=== PATIENT | female | born 1995 | race Hispanic/Latino ===

== ENCOUNTER 2017-07-15 12:05 | Emergency (ER) | payer OTHER ==
[2017-07-15 14:17] LABS: BASO % 0.3 % (0.0-1.0); EOS % 0.1 % (0.0-3.0); HEMATOCRIT 43.2 % (36.0-47.0); HEMOGLOBIN 15.3 g/dl (12.0-16.0); IMMATURE GRANULOCYTE % 0.3 % (0-3.0); LYMPH % 19.6 % (24.0-44.0); MEAN CORPUSCULAR HEMOGLOBIN 31.2 pg (27.0-33.0); MEAN CORPUSCULAR HGB CONC 35.4 g/dl (32.0-36.5); MEAN CORPUSCULAR VOLUME 88.2 fl (80.0-96.0); MONO # 0.7 10^3/uL (0.0-0.8); MONO % 6.6 % (0.0-5.0); NEUTROPHILS # 7.6 10^3/uL (1.8-7.7); NEUTROPHILS % 73.1 % (36.0-66.0); PLATELET COUNT, AUTOMATED 244 10^3/uL (150-450); RED CELL DISTRIBUTION WIDTH 12.2 % (11.5-14.5); WHITE BLOOD COUNT 10.4 10^3/uL (4.0-10.0)
[2017-07-15 14:24] LABS: KETONE, URINE AUTO RFX NEGATIVE (NEGATIVE); NITRITE, URINE AUTO RFX NEGATIVE (NEGATIVE); RBC, URINE AUTO RFX 0 /HPF (0-3); SPECIFIC GRAVITY UR AUTO RFX 1.004 (1.002-1.035); SQUAM EPITHELIAL CELL UR AURFX 3 /HPF (0-6); WBC, URINE AUTO RFX 8 /HPF (0-3)
[2017-07-15 14:52] LABS: LEUKOCYTE ESTERASE UR AUTO RFX 2+ (NEGATIVE)
[2017-07-15 15:07] LABS: HCG, SERUM QUANTITATIVE 55140 MIU/ML
== END 2017-07-15 15:42 | disposition home or self-care (01) ==
LOC: M ED 12:05
DX: O23.11 Infections of bladder in pregnancy, first trimester (principal); O26.851 Spotting complicating pregnancy, first trimester; Z3A.01 Less than 8 weeks gestation of pregnancy
CPT/HCPCS: 76801

== ENCOUNTER → 2017-08-05 | Outpatient (CLI) | payer OTHER ==
[2017-08-05 13:33] LABS: BASO % 0.4 % (0.0-1.0); EOS % 0.1 % (0.0-3.0); HEMATOCRIT 42.5 % (36.0-47.0); HEMOGLOBIN 14.7 g/dl (12.0-16.0); IMMATURE GRANULOCYTE % 0.2 % (0-3.0); LYMPH # 1.5 10^3/uL (1.5-6.5); LYMPH % 17.1 % (24.0-44.0); MEAN CORPUSCULAR HGB CONC 34.6 g/dl (32.0-36.5); MEAN CORPUSCULAR VOLUME 89.7 fl (80.0-96.0); MONO # 0.5 10^3/uL (0.0-0.8); NEUTROPHILS # 6.5 10^3/uL (1.8-7.7); NEUTROPHILS % 76.2 % (36.0-66.0); PLATELET COUNT, AUTOMATED 244 10^3/uL (150-450); RED BLOOD COUNT 4.74 10^6/uL (4.00-5.40); RED CELL DISTRIBUTION WIDTH 12.7 % (11.5-14.5); WHITE BLOOD COUNT 8.5 10^3/uL (4.0-10.0)
[2017-08-05 14:25] LABS: RUBELLA IgG QUALITATIVE IMMUNE (IMMUNE)
[2017-08-05 14:26] LABS: HBsAg Prenatal NEGATIVE (NEGATIVE)
[2017-08-05 14:54] LABS: HEPATITIS C VIRUS ABY INDEX < 0.0 INDEX (<0.8)
[2017-08-05 14:55] LABS: HIV 1&2 SCREEN CENTAUR NEGATIVE (NEGATIVE)
[2017-08-05 15:38] LABS: CHLAMYDIA DNA AMPLIFICATION NEGATIVE (NEGATIVE); GC DNA AMPLIFICATION NEGATIVE (NEGATIVE)
== END ==
LOC: M SMT 09:54
DX: Z34.81 Encounter for supervision of other normal pregnancy, first trimester (principal); Z3A.09 9 weeks gestation of pregnancy

== ENCOUNTER → 2017-12-03 | Outpatient (CLI) | payer OTHER ==
[2017-12-03 13:17] LABS: BASO % 0.3 % (0.0-1.0); EOS % 0.3 % (0.0-3.0); HEMOGLOBIN 12.1 g/dl (12.0-15.5); IMMATURE GRANULOCYTE % 0.4 % (0-3.0); LYMPH # 1.3 10^3/uL (1.5-6.5); LYMPH % 18.1 % (24.0-44.0); MEAN CORPUSCULAR HEMOGLOBIN 30.6 pg (27.0-33.0); MEAN CORPUSCULAR HGB CONC 33.6 g/dl (32.0-36.5); MEAN CORPUSCULAR VOLUME 90.9 fl (80.0-96.0); MONO # 0.4 10^3/uL (0.0-0.8); MONO % 5.8 % (0.0-5.0); NEUTROPHILS # 5.5 10^3/uL (1.8-7.7); NEUTROPHILS % 75.1 % (36.0-66.0); PLATELET COUNT, AUTOMATED 208 10^3/uL (150-450); RED BLOOD COUNT 3.96 10^6/uL (4.00-5.40); WHITE BLOOD COUNT 7.4 10^3/uL (4.0-10.0)
[2017-12-03 14:07] LABS: GLUCOSE CHALLENGE TEST 1 HOUR 129 MG/DL (LESS THAN 140)
== END ==
LOC: M SMT 09:22
DX: Z34.82 Encounter for supervision of other normal pregnancy, second trimester (principal); Z36.89 Encounter for other specified antenatal screening
CPT/HCPCS: 82950

== ENCOUNTER → 2018-02-04 | Outpatient (REF) | payer OTHER | LOC: M LAB REF 17:17 | DX: Z34.83 Encounter for supervision of other normal pregnancy, third trimester (principal) ==

== ENCOUNTER 2018-02-20 02:11 | Inpatient (IN) | payer OTHER ==
[2018-02-20] MEDS ORDERED: LR 1,000 ML IV (02:51)
[2018-02-20] MEDS ORDERED: LACTATED RINGER'S 1000 ML IV (02:51)
[2018-02-20] MEDS ORDERED: OXYTOCIN 30 UNITS IN 0.9% NaCl 500ML IV BAG (J2590) As Ordered (03:13)
[2018-02-20] MEDS ORDERED: OXYTOCIN DRIP 30 UNITS in APPROPRIATE DILUENT 1 EA IV (03:36)
[2018-02-20 03:45] LABS: HEMATOCRIT 39.6 % (36.0-47.0); HEMOGLOBIN 12.9 g/dl (12.0-15.5); MEAN CORPUSCULAR HEMOGLOBIN 26.8 pg (27.0-33.0); MEAN CORPUSCULAR HGB CONC 32.6 g/dl (32.0-36.5); MEAN CORPUSCULAR VOLUME 82.3 fl (80.0-96.0); PLATELET COUNT, AUTOMATED 208 10^3/uL (150-450); RED BLOOD COUNT 4.81 10^6/uL (4.00-5.40); RED CELL DISTRIBUTION WIDTH 13.7 % (11.5-14.5); WHITE BLOOD COUNT 9.8 10^3/uL (4.0-10.0)
[2018-02-20] MEDS ORDERED: DOCUSATE SODIUM 100 MG CAP PO (03:45)
[2018-02-20] MEDS ORDERED: DIBUCAINE 1% OINTMENT 30GM TOP (03:45)
[2018-02-20] MEDS ORDERED: RHOGAM 300 MCG (1500 IU) INJ (J2790) IM (03:45)
[2018-02-20] MEDS ORDERED: MEASLES,MUMPS,RUBELLA VACCINE INJ (MMR-II) (90707) SC (03:45)
[2018-02-20] MEDS ORDERED: ACETAMINOPHEN 500 MG TAB PO (03:45)
[2018-02-20] MEDS ORDERED: METHYLERGONOVINE MALEATE 0.2 MG TAB PO (03:45)
[2018-02-20] MEDS: PRENATAL VITAMINS CHEWABLE TABLET PO (09:04)
[2018-02-20] MEDS: IBUPROFEN 800 MG TAB PO ×2 (09:35→18:06)
[2018-02-21] MEDS: PRENATAL VITAMINS CHEWABLE TABLET PO (08:07)
[2018-02-21] MEDS: INFLUENZA QUADRIVALENT PF VACCINE 0.5ML SYRINGE (90686) IM (11:23)
[2018-02-21] MEDS: ADACEL/BOOSTRIX VACCINE (DIPHTH/PERTUSS/ACELL/TETANUS)0.5ML SYR (90715) IM (11:24)
== END 2018-02-21 12:40 | disposition home or self-care (01) | DRG 775 ==
LOC: M LDO 02:11 → M LDI 02:50 → M OBS 05:12
PROVIDERS: Advanced Practice Midwife
PROC: 10E0XZZ Delivery of Products of Conception, External Approach (ICD-10-PCS; principal; 2018-02-20)
DX: O69.1XX0 Labor and delivery complicated by cord around neck, with compression, not applicable or unspecified (principal); Z3A.38 38 weeks gestation of pregnancy; Z37.0 Single live birth

== ENCOUNTER → 2018-06-17 | Outpatient (CLI) | payer OTHER ==
[~2018-06-17] MED LIST: ACET-683 PO; MOTR200T44 PO; NITR100C39 PO; PRENTAB9 PO
--- NOTE | 2018-06-18 02:36 | REP ---
Clinical: Incidental . Technique: Transabdominal and transit vaginal first trimester obstetrical ultrasound with color Doppler evaluation. Findings: Retroverted uterus measures 9.5 x 4.8 x 6.1 cm. A gestational sac with yolk sac identified. Mean sac diameter of 12 mm corresponds to 6 weeks 0 days gestational age. A small subchorionic hemorrhage is identified. IUD is visualized inferior to the gestational sac. Maternal ovaries are normal in appearance and vascularity without torsion. Right ovary measures 1.4 x 1.1 x 1.9 cm; RI 0.44. Left ovary measures 2.7 x 1.6 x 3.7 cm with 2.2 cm hemorrhagic cyst/corpus luteum; RI 0.33. Impression: 1. Findings suggest blighted ovum versus early . Correlation with serial HCG levels and repeat ultrasound may be warranted. A small subchorionic hemorrhage is suggested and the IUD is identified inferior to the gestational sac. Electronically Signed by Solomon Thorpe MD 06/18/2018 02:27 A
== END ==
LOC: M RAD 13:18
PROVIDERS: ATTEND Obstetrics & Gynecology
DX: Z36.89 Encounter for other specified antenatal screening (principal); Z3A.01 Less than 8 weeks gestation of pregnancy; Z30.431 Encounter for routine checking of intrauterine contraceptive device

== ENCOUNTER 2018-07-03 16:01 | Emergency (ER) | payer OTHER ==
[~2018-07-03] VITALS: Ht 160 cm; Wt 69.5 kg
[2018-07-03] MEDS ORDERED: MIRE1IUD IU (16:07)
[2018-07-03] MEDS ORDERED: NS 1,000 ML IV ONE (16:30)
[2018-07-03 16:43] LABS: BASO # 0.1 10^3/uL (0.0-0.2); BASO % 0.5 % (0.0-1.0); EOS # 0.1 10^3/uL (0.0-0.50); EOS % 1.3 % (0.0-3.0); HEMATOCRIT 39.6 % (36.0-47.0); HEMOGLOBIN 13.6 g/dl (12.0-15.5); LYMPH # 1.1 10^3/uL (1.5-6.5); LYMPH % 10.6 % (24.0-44.0); MEAN CORPUSCULAR HEMOGLOBIN 30.6 pg (27.0-33.0); MEAN CORPUSCULAR HGB CONC 34.3 g/dl (32.0-36.5); MONO # 0.7 10^3/uL (0.0-0.8); MONO % 6.8 % (0.0-5.0); NEUTROPHILS # 8.4 10^3/uL (1.8-7.7); NEUTROPHILS % 80.4 % (36.0-66.0); PLATELET COUNT, AUTOMATED 233 10^3/uL (150-450); RED BLOOD COUNT 4.45 10^6/uL (4.00-5.40); WHITE BLOOD COUNT 10.4 10^3/uL (4.0-10.0)
[2018-07-03 18:46] VITALS: BP 107/63
--- NOTE | 2018-07-03 18:53 | REPVR ---
EXAM: US First Trimester, Transabdominal and US , Transvaginal EXAM DATE/TIME: 07/03/2018 6:08 PM CLINICAL HISTORY: 22 years old, female; Signs and symptoms; Lmp or gestational age (in weeks): 8w 2d; Antepartum complications; Bleeding; ; Additional info: Vaginal bleeding TECHNIQUE: Real-time transabdominal obstetrical ultrasound of the maternal pelvis and a first trimester , less than 14 weeks 0 days, with image documentation. Transvaginal imaging was used for better evaluation of the fetus and adnexa. COMPARISON: No relevant prior studies available. FINDINGS: GESTATION: Gestation: Single gestational sac in the uterus. Large complex fluid collection adjacent to and compressing the gestational sac measures 6 x 3.2 x 4.7 cm consistent with a large mercy-gestational bleed. 3 mm yolk sac demonstrated. Heart rate: heart rate is 169 beats per minute. Placenta: Early placental tissue forming anteriorly. Amniotic fluid: Amniotic and chorionic fluid are normal for gestational age. BIOMETRY: Estimated gestational age: Gestational age based on crown-rump length is 7 weeks 4 days. TERRY is 02/14/2019 oh Gestational age based on LMP is 8 weeks 2 days. [place]-Rump length: Single fetus demonstrated with crown-rump length of 1.3 cm. MATERNAL: Uterus: Note is made of an IUD within the endometrial cavity. Cervix: Unremarkable. Right adnexa: Unremarkable. Left adnexa: Unremarkable. Intraperitoneal: No intraperitoneal free fluid. IMPRESSION: Large right gestational bleed in his first trimester gestation which also demonstrates the presence of an IUD. Gestational age based on measurement of the crown-rump length of 7 weeks 4 days with an TERRY of 02/14/2019. There is a large mercy-gestational bleed as described above. Followup imaging suggested. Electronically signed by: Isaac Burger On 07/03/2018 18:52:45 PM
== END 2018-07-03 18:48 | disposition home or self-care (01) ==
LOC: M ED 16:01
DX: O20.8 Other hemorrhage in early pregnancy (principal); Z97.5 Presence of (intrauterine) contraceptive device; Z3A.01 Less than 8 weeks gestation of pregnancy; Z79.899 Other long term (current) drug therapy

== ENCOUNTER → 2018-07-05 | Outpatient (CLI) | payer OTHER ==
[~2018-07-05] MED LIST changes: +MIRE1IUD IU
== END ==
LOC: M SMT 14:43
PROVIDERS: ATTEND Advanced Practice Midwife
DX: O20.0 Threatened abortion (principal)

== ENCOUNTER → 2018-07-13 | Outpatient (CLI) | payer OTHER ==
[2018-07-13 13:21] LABS: BASO % 0.5 % (0.0-1.0); EOS % 0.1 % (0.0-3.0); HEMATOCRIT 41.8 % (36.0-47.0); LYMPH # 1.8 10^3/uL (1.5-6.5); LYMPH % 20.9 % (24.0-44.0); MEAN CORPUSCULAR HEMOGLOBIN 30.8 pg (27.0-33.0); MEAN CORPUSCULAR HGB CONC 33.5 g/dl (32.0-36.5); MEAN CORPUSCULAR VOLUME 91.9 fl (80.0-96.0); MONO # 0.6 10^3/uL (0.0-0.8); MONO % 6.5 % (0.0-5.0); NEUTROPHILS # 6.2 10^3/uL (1.8-7.7); NEUTROPHILS % 71.8 % (36.0-66.0); PLATELET COUNT, AUTOMATED 326 10^3/uL (150-450); RED BLOOD COUNT 4.55 10^6/uL (4.00-5.40); WHITE BLOOD COUNT 8.6 10^3/uL (4.0-10.0)
[2018-07-13 21:59] LABS: CHLAMYDIA DNA AMPLIFICATION NEGATIVE (NEGATIVE); GC DNA AMPLIFICATION NEGATIVE (NEGATIVE)
[2018-07-14 10:13] LABS: HEPATITIS C VIRUS ABY INDEX < 0.0 INDEX (<0.8); HIV 1&2 SCREEN CENTAUR NEGATIVE (NEGATIVE); RUBELLA IgG QUALITATIVE IMMUNE (IMMUNE)
== END ==
LOC: M SMT 10:09
PROVIDERS: ATTEND Advanced Practice Midwife
DX: Z36.89 Encounter for other specified antenatal screening (principal)

== ENCOUNTER → 2018-07-27 | Outpatient (CLI) | payer OTHER | LOC: M SMT 11:12 | PROVIDERS: ATTEND Advanced Practice Midwife | DX: Z36.89 Encounter for other specified antenatal screening (principal) ==

== ENCOUNTER → 2018-07-28 | Outpatient (CLI) | payer OTHER | LOC: M LAB 10:55 | PROVIDERS: ATTEND Advanced Practice Midwife | DX: Z82.79 Family history of other congenital malformations, deformations and chromosomal abnormalities (principal) ==

== ENCOUNTER → 2018-09-16 | Outpatient (CLI) | payer OTHER ==
--- NOTE | 2018-09-17 05:33 | REP ---
Clinical: Anatomical evaluation. Comparison: 07/03/2018 . Findings: Examination demonstrates a single live intrauterine in cephalic presentation. motion is identified by technologist. Placenta is noted posterior/right lateral and grade 1 without evidence for placenta previa or abruption. Amniotic fluid volume is normal. Cervix measures 5.0 cm in length and appears closed. No evidence for nuchal cord. Gestational age by LMP 19 weeks 0 days with TERRY 02/10/2019 . Gestational age by current measurements 18 weeks 5 day with TERRY 02/12/2019 . FHR equals 154 beats per minute. BPD 4.2 sent 18 weeks 6 days HC 15.9 cm 18 weeks 5 days AC 13.0 cm 18 weeks 4 days FL 2.8 cm 18 weeks 4 days HL 2.7 cm 18 weeks 5 days HC/AC ratio 1.22 Estimated weight 240 grams ( eight 33rd percentile). Anatomical assessment demonstrates normal structures including cranium, choroid plexus, cavum, cerebellum/posterior fossa, facial features, lungs, diaphragm, stomach, cord insertion/three-vessel cord, kidneys/bladder, spine, and extremities. Impression: 1. Single live intrauterine in cephalic presentation demonstrating appropriate interval growth. 2. Incomplete evaluation of the heart/ventricular outflow tracts warrant reevaluation and follow-up. Electronically Signed by Solomon Thorpe MD 09/17/2018 05:25 A
== END ==
LOC: M RAD 11:56
PROVIDERS: ATTEND Advanced Practice Midwife
DX: Z34.82 Encounter for supervision of other normal pregnancy, second trimester (principal); Z3A.18 18 weeks gestation of pregnancy

== ENCOUNTER → 2018-10-29 | Outpatient (CLI) | payer OTHER ==
--- NOTE | 2018-10-29 14:46 | REP ---
OB ULTRASOUND: Real-time sonographic evaluation of gravid uterus performed. There is a single living intrauterine gestation, estimated gestational age 25 weeks 1 day, EDC 02/10/2019. Todays measurements indicate appropriate growth. BPD 62 mm = 25 weeks 0 days, 49th percentile HC 230 mm = 25 weeks 0 days, 49th percentile AC 202 mm = 24 weeks 6 days, 44th percentile Femur length 45 mm = 24 weeks 5 days, 41st percentile HC/AC ratio 1.14, within normal range. Estimated weight 735 grams, 35th percentile. Cervix is closed and measures 4.9 cm in length. heart rate 161 beats per minute. SEEN/GROSSLY UNREMARKABLE Lateral ventricles Yes Posterior fossa Yes Upper lip Yes Four-chamber heart Yes LVOT Yes RVOT Yes Stomach Yes Cord insertion Yes Three vessel cord Yes Kidneys Yes Bladder Yes Spine Yes position is vertex. Placenta is on the right and grade 1 with no previa or abruption. Amniotic fluid within normal limits. Please note that there is an IUD present on the left anteriorly. There is a small amount of complex fluid surrounding the IUD. Unreviewed
== END ==
LOC: M RAD 13:09
PROVIDERS: ATTEND Advanced Practice Midwife
DX: O26.32 Retained intrauterine contraceptive device in pregnancy, second trimester (principal); Z3A.25 25 weeks gestation of pregnancy

== ENCOUNTER → 2018-11-22 | Outpatient (CLI) | payer OTHER ==
[2018-11-22 13:34] LABS: HEMOGLOBIN 11.7 g/dl (12.0-15.5); MEAN CORPUSCULAR HEMOGLOBIN 27.8 pg (27.0-33.0); MEAN CORPUSCULAR HGB CONC 31.6 g/dl (32.0-36.5); MEAN CORPUSCULAR VOLUME 87.9 fl (80.0-96.0); PLATELET COUNT, AUTOMATED 215 10^3/uL (150-450); RED BLOOD COUNT 4.21 10^6/uL (4.00-5.40); WHITE BLOOD COUNT 8.3 10^3/uL (4.0-10.0)
== END ==
LOC: M SMT 09:48
PROVIDERS: ATTEND Advanced Practice Midwife
DX: O26.32 Retained intrauterine contraceptive device in pregnancy, second trimester (principal); Z3A.00 Weeks of gestation of pregnancy not specified

== ENCOUNTER 2018-11-29 21:33 | Outpatient (CLI) | payer OTHER ==
[~2018-11-29] VITALS: Ht 160 cm; Wt 73.6 kg
[2018-11-29 21:52] VITALS: BP 107/61
--- NOTE | 2018-11-29 23:07 | IPNPDOC ---
Text Note Date of Service The patient was seen on 11/29/18. NOTE Subjective: Patient is a 22-year-old female who is a at 29.4 weeks gestation with an TERRY of 02/10/19 based off of her LMP and consistent with her first trimester sono. Her has been complicated by having an IUD in place and a history of a resolved subchorionic hemorrhage. She presents to L&D today after having an episode of of vaginal bleeding. States it was slightly red and only when she wiped x2. She denies any clotting or current vaginal bleeding. She reports active movement. She denies contractions or leaking of fluid. She reports intercourse was more than 2 days ago. Objective: VS: see below. FHR 140, moderate variability, positive accelerations, no decelerations. Contractions: one noted. SSE: cervix appears closed and thick. No vaginal bleeding noted in the vagina or coming from the cervical os. General: A+O x3. Respiratory rate is regular. Abdomen is soft to palpation and nontender to touch. Assessment: IUP at 29.4 weeks, vaginal spotting Plan: Patient discharge to home with her . She has a routine OB appointment on 12/02/18. Reviewed access to care, kick count, labor signs, and danger signs to report. VS,Tahminae, I+O VS, [place]min[place], I+O Vital Signs Date Time Temp Pulse Resp B/P (MAP) Pulse Ox O2 Delivery O2 Flow Rate FiO2 11/29/18 21:52 98.4 83 18 107/61 (76) SAVI MOODY CNM Nov 29, 2018 23:07
== END 2018-11-29 22:35 | disposition home or self-care (01) ==
LOC: M LDO 21:33
PROVIDERS: ATTEND Advanced Practice Midwife
DX: O26.853 Spotting complicating pregnancy, third trimester (principal); O47.03 False labor before 37 completed weeks of gestation, third trimester; Z3A.29 29 weeks gestation of pregnancy
CPT/HCPCS: 59025; G0378; G0463

== ENCOUNTER 2018-12-04 06:27 | Outpatient (CLI) | payer OTHER ==
[~2018-12-04] VITALS: Ht 160 cm; Wt 71.1 kg
[2018-12-04] VITALS (8 sets, daily range): BP systolic 91–105; BP diastolic 57–70
[2018-12-04] MEDS ORDERED: ACETAMINOPHEN TAB 650MG DOSE (2X325MG) PO PRN (07:15)
[2018-12-04] MEDS ORDERED: PENICILLIN G POTASSIUM IV 5 MU in D5W MINI-BAG PLUS 100 ML IV ONE (07:15)
--- NOTE | 2018-12-04 07:40 | HPEPDOC ---
Obstetrical History & Physical General Date of Admission December 04, 2018 History of Present Illness Chief Complaint: IUP-, Other (PPROM) Information Provided By: Patient Age: 22 : 4 Term: 3 Pre-term: 0 Abortions: 0 Livin Care Care: Good Care Dating Final EDC: Feb 10, 2019 Final EDC by: LMP EGA at Admission: 30 (+2) Antepartum Course Height (inches): 63 Pre- weight (lbs.): 156 Admission Weight (lbs.): 158 Past Medical History Past Obstetrical History #1: Past Obstetrical History: Primgravida (07/2014) Type of Delivery: Spontaneous Vaginal Del. Sex of : Male (8#3) Complications: No Past Obstetrical History #2: Past Obstetrical History: Multigravida (10/2015) Type of Delivery: Spontaneous Vaginal Del. Sex of Infant: Female (6#4) Complications: No Past Obstetrical History #3: Past Obstetrical History: Multigravida (02/2018) Type of Delivery: Spontaneous Vaginal Del. 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) Past Medical History Surgical History: Denies/None Family History Significant Family History: No pertinent family hx Social History Marital Status: Family situation: Spouse/partner home Psychosocial History: No pertinent psych hx * Smoker: non-smoker Alcohol: Denies Drugs: denies Abuse Violence Screening Have you been hit/kicked/slapp: No Allergies Coded Allergies: No Known Allergies (Unverified , 07/15/17) Medications Scheduled No.137/Iron/Folic Acd ( Vitamin Tablet) 1 Tab Tab, 1 TAB PO DAILY Miscellaneous Medications Levonorgestrel (Mirena) 20 Mcg/24 Hr Iud, Unknown Dose IU Physical Examination Physical Examination GENERAL: Alert and oriented times three. BREAST: . ABDOMEN: Gravid and non-tender to touch. HEART RATE: Regular rate and rhythm. LUNGS: Clear to auscultation (CTA). EXTREMITIES: No edema. No clonus. Deep tendon reflexes (DTRs) + 2. SSE: pooling clear fluid vaginally, large amount. Nitrazine +, unable to fern. Cervix visually LTC Pertinent Laboratoy Data Blood Type: O+ RBC Antibody Screen: Negative HIV: Negative Hepatitis B: Negative Hepatitis C: Negative Rapid Plasma Reagin: Nonreactive Rubella: Immune Chlamydia/Gonorrhea: Negative Group B Streptococcus: Unknown (obtained 12/04/18) Quad Screen Test: Negative (panorama low risk, female) Glucose Tolerance Test: 105 Anatomy Ultrasound Ultrasound Date: September 16, 2018 Placenta Location: Posterior (right lateral) Normal Anatomy: Yes Placenta Previa: No Estimated Weight (grams): 248 Other Ultrasounds 07/03/18 7w4d, TERRY 7w4d. IUD in endometrial cavity 07/05/[address]. 08/12/18 Subchorionic bleed. IUD present. Second GS, abnormal without pole 10/29/18 IUD present, Left anteriorly. Complex fluid surrounding IUD Steroid Therapy Steroid Therapy: No Vaginal Examination Dilation: None (visually LTC) Assessment Heart Rate (FHR): 145 Accelerations: Positive Decelerations: None Tocometer Contractions: Yes Frequency: irregular, other Strength: palpated as mild Assessment/Plan Assessment Jaimee is a 22-year-old (G)4 para (P)3-0-0-3 at 30+2 weeks by 7-week ultrasound. Presents to Labor and Delivery (L&D) with premature rupture of membranes @ 0430. Consulted Dr Hurtado, initiate betamethasone, GBS prophylaxis and magnesium sulfate. Prepare for transfer to [facility]. Plan Admit and orient per consult Dr Hurtado Laminator Preforms and consent. Diet: Regular. Group B Streptococcus (GBS) unknown. Culture obtained. Labs and intravenous (IV) per unit protocol. Reviewed PPROM care. GBS prophylaxis, betamethasone and magnesium sulfate. Plan transport to [facility] Darlyn Hernandez CNM Dec 04, 2018 07:23
[2018-12-04] MEDS ORDERED: AZITHROMYCIN 250 MG TAB PO ONE (07:45)
[2018-12-04] MEDS ORDERED: MAG Sulf (L&D) 4 GM/100 ML 4 GM in APPROPRIATE DILUENT 1 EA IV ONE (07:45)
[2018-12-04] MEDS ORDERED: BETAMETHASONE SOLUSPAN 6MG/ML INJ 5ML (J0702) IM SCH (08:00)
[2018-12-04] MEDS ORDERED: AMPICILLIN SOD 2 GM in D5W MINI-BAG PLUS 100 ML IV SCH (08:00)
[2018-12-04] MEDS ORDERED: MAG Sulf (OBGYN) 20GM/500ML 20,000 MG in APPROPRIATE DILUENT 1 EA IV SCH (08:00)
[2018-12-04] MEDS ORDERED: LR 1,000 ML IV SCH (08:58)
[2018-12-04] MEDS ORDERED: PRENATAL VITAMINS CHEWABLE TABLET PO SCH (09:00)
[2018-12-04] MEDS ORDERED: PENICILLIN G POTASSIUM IV 2.5 MU in APPROPRIATE DILUENT 1 EA IV SCH (11:15)
[2018-12-04] MEDS ORDERED: METAL LOCK LOOP XX ONE (13:50)
== END 2018-12-04 10:10 | disposition short-term general hospital (02) ==
LOC: M LDO 06:27
PROVIDERS: ATTEND Advanced Practice Midwife
DX: O42.013 Preterm premature rupture of membranes, onset of labor within 24 hours of rupture, third trimester (principal); Z3A.30 30 weeks gestation of pregnancy
CPT/HCPCS: 59025; 87081; 96365; 96366; 96372; 96375; G0378; G0463; J0702; J3475